=== PATIENT | female | born 1940 | race Caucasian/White ===

== ENCOUNTER → 2020-03-17 | Outpatient (CLI) | payer MEDICARE, OTHER ==
[~2020-03-17] MED LIST: ELAVIL PO; ESTR0.5T PO; GABA300C PO; LEVO50TA64 PO; LUTE10TA2 PO; OMEP-110 PO; SIMV10TA18 PO
== END | disposition home or self-care (01) ==
LOC: STAR 08:54
PROVIDERS: ATTEND Obstetrics & Gynecology Female Pelvic Medicine and Reconstructive Surgery
DX: Z01.818 Encounter for other preprocedural examination (principal); R10.2 Pelvic and perineal pain; N81.10 Cystocele, unspecified; N81.6 Rectocele; N39.3 Stress incontinence (female) (male); Z20.822 Contact with and (suspected) exposure to COVID-19
CPT/HCPCS: 87635; 93005

== ENCOUNTER 2020-03-23 11:23 | Day surgery (SDC) | payer MEDICARE, OTHER ==
[2020-03-17 09:24] VITALS: BP 165/88
[~2020-03-23] VITALS: Ht 165.1 cm; Wt 80.9 kg
[2020-03-23] MEDS ORDERED: CHLORHEXIDINE 15 ML UDC ONE (12:09)
[2020-03-23] MEDS ORDERED: LACTATED RINGERS 1,000 ML IV SCH (12:30)
[2020-03-23] MEDS ORDERED: CHLORHEXIDINE 15 ML UDC MM ONE (12:30)
[2020-03-23] MEDS ORDERED: MIDAZOLAM 1 MG/ML, 2ML ONE (14:38)
[2020-03-23] MEDS ORDERED: FENTANYL PF 100 MCG/2ML ONE ×2 (14:38→16:20)
[2020-03-23] MEDS ORDERED: PROMETHAZINE 25 MG/ML, 1ML IVPush PRN (15:00)
[2020-03-23] MEDS ORDERED: OXYcodone 5 MG/5 ML ORAL.SOL UDC PO PRN (15:00)
[2020-03-23] MEDS ORDERED: MEPERIDINE/PF 25MG/0.5ML IVPush PRN (15:00)
[2020-03-23] MEDS ORDERED: ONDANSETRON 2MG/ML, 2ML IVPush PRN (15:00)
[2020-03-23] MEDS ORDERED: HYDROcodone/APAP 7.5-325MG/15ML UDC PO PRN (15:00)
[2020-03-23] MEDS ORDERED: CEFAZOLIN 1,000 MG ONE (15:22)
[2020-03-23] MEDS ORDERED: ONDANSETRON 2MG/ML, 2ML ONE (15:22)
[2020-03-23] MEDS ORDERED: PROPOFOL 10 MG/ML, 20ML ONE (15:22)
[2020-03-23] MEDS ORDERED: DEXAMETHASONE 4 MG/ML, 1ML ONE (15:22)
[2020-03-23] MEDS ORDERED: HYDROmorphone 1 MG/ML, 1ML INJ ONE ×2 (16:20→16:56)
[2020-03-23] MEDS: FENTANYL PF 100 MCG/2ML IV PRN ×3 (16:25→16:41)
[2020-03-23] MEDS: HYDROmorphone 1 MG/ML, 1ML INJ IVPush PRN ×3 (16:35→16:57)
== END 2020-03-23 19:10 | disposition home or self-care (01) ==
LOC: OUT 11:23
PROVIDERS: ATTEND Obstetrics & Gynecology Female Pelvic Medicine and Reconstructive Surgery
DX: N81.89 Other female genital prolapse (principal); N81.10 Cystocele, unspecified; N39.3 Stress incontinence (female) (male); E03.9 Hypothyroidism, unspecified; E78.00 Pure hypercholesterolemia, unspecified; F32.9 Major depressive disorder, single episode, unspecified; Z88.1 Allergy status to other antibiotic agents; K21.9 Gastro-esophageal reflux disease without esophagitis; Z90.49 Acquired absence of other specified parts of digestive tract; Z90.710 Acquired absence of both cervix and uterus; Z98.890 Other specified postprocedural states; Z79.899 Other long term (current) drug therapy
CPT/HCPCS: 57265; 57282; 57288; C1771; J0690; J1100; J1170; J2405; J2704; J3010; J7120; J2250